=== PATIENT | male | born 1940 | race Caucasian/White ===

== ENCOUNTER 2023-04-29 17:35 | Emergency (ER) | payer MEDICARE, SELFPAY ==
[2023-04-29 17:36] VITALS: BP 126/83; PULSE 117; RESP 18; TEMP 36.4; O2SAT 96
--- NOTE | 2023-04-29 17:40 | ED.EXTPRO ---
HPI - Extremity Problem General Chief complaint: Extremity Problem,Nontraumatic Stated complaint: leg bleeding Time Seen by Provider: 04/29/23 17:39 Source: patient Mode of arrival: ambulatory Limitations: no limitations History of Present Illness HPI Narrative: Patient is an 83 y/o female who presents to the ED with c/o bleeding from wound to his LLE. Patient reports he had a skin biopsy performed on his L inner calf 1 month ago by a surgeon at [facility]. He states it never healed fully. He developed bleeding from the wound again today and was unable to control the bleeding. Patient is on Xarelto due to hx of afib. Patient was recently admitted at an outside hospital for PNA. Discharged to [facility] for rehab last night. He states he has not had his dressing changed in the last 1 week until today. Related Data Allergies Allergy/AdvReac Type Severity Reaction Status Date / Time No Known Allergies Allergy Uncoded 04/14/19 06:31 Review of Systems Review of Systems: CONSTITUTIONAL: Denies fever, chills, or sweats. SKIN: See HPI. MUSCULOSKELETAL: Denies back pain, joint pain, or myalgia. NEUROLOGIC: Denies headache, numbness, or weakness. All systems reviewed & are unremarkable except as noted in HPI and below Exam Narrative: GENERAL: Elderly, non-toxic, in no acute distress. RESPIRATORY: Airway patent, respirations nonlabored. CARDIOVASCULAR: Regular rate and rhythm without murmurs, rubs, or gallops. Pedal pulses 2+ and equal bilaterally. MUSCULOSKELETAL: Moves all extremities. No gross deformities. Venous stasis changes to bilateral lower extremities. Circular wound to left medial calf with small central scab. No active bleeding. Small area of surrounding ecchymosis present. SKIN: Warm, dry, normal color. No rashes. NEURO: A&O X3. Speech clear. Cranial nerves II-XII grossly intact. No ataxic movements. PSYCHIATRIC: Appropriate mood and affect. Normal interaction. Course Vital Signs Vital signs: Vital Signs Temperature 97.6 F 04/29/23 17:36 Pulse Rate 117 H 04/29/23 17:36 Respiratory Rate 18 04/29/23 17:36 Blood Pressure 126/83 04/29/23 17:36 Pulse Oximetry 96 04/29/23 17:36 Oxygen Delivery Room Air 04/29/23 17:36 Temperature 97.6 F 04/29/23 17:36 Pulse Rate 80 04/29/23 18:41 Respiratory Rate 20 04/29/23 18:41 Blood Pressure 126/83 04/29/23 17:36 Pulse Oximetry 93 04/29/23 18:41 Oxygen Delivery Room Air 04/29/23 17:36 MDM - Extremity (Nontraumatic) MDM Narrative Medical decision making narrative: Patient presented to ED with bleeding wound from previous skin biopsy site. Patient had not had his bandage changed in the last 1 week. Bandaged changed today at [place] and began bleeding afterwards. Upon arrival to the ED, no active bleeding noted. Discussed using silver nitrate sticks to cauterize wound, however again no bleeding noted. Will re-bandage wound with nonadhesive dressing, pressure gauze dressing over telfa. Emphasized the importance of daily wound checks and dressing changes. My suspicion is that the [facility] staff changed the bandage today and in doing so inadvertently ripped open a part of the scab that had formed. Will provide referral to wound care at [place]. Otherwise recommended follow-up with surgeon who performed procedure or primary care doctor for frequent wound checks. Given return precautions. Patient and family agree w/ plan. Medical Records Attestation: I reviewed the patient's medical records. Discharge Plan Discharge Clinical Impression: Chronic wound of extremity Patient Disposition: Home, Self-Care Condition: Stable Instructions: Antibiotic Form, Skin Adhesive Care (ED), Chronic Wounds (ED), Acute Wounds (ED) Additional Instructions: Recommend daily bandage changes and wound checks. Recommend using nonadhesive bandages to prevent wound from sticking to bandage. You may use an antibiotic cream, Vaseline, Aquaph
[2023-04-29 18:41] VITALS: PULSE 80; RESP 20; O2SAT 93
== END 2023-04-29 18:50 ==
PROVIDERS: Emergency Provider Physician Assistant; PCP Internal Medicine
DX: Z48.01 Encounter for change or removal of surgical wound dressing (principal); I48.91 Unspecified atrial fibrillation; Z79.01 Long term (current) use of anticoagulants
CPT/HCPCS: 99282

== ENCOUNTER 2023-05-05 16:38 | Inpatient (IN) | payer MEDICARE, SELFPAY ==
--- NOTE | ~2023-05-05 | XR_ITS ---
MODIFIED ESOPHAGRAM HISTORY: Aspiration TECHNIQUE: Modified barium esophagram was performed on 05/09/2023. I administered fluoroscopy and per formed the exam with speech pathologist. Patient was seated for lateral fluoroscopic imaging for ing estion of thin liquids, pudding, solids and quantified amounts, followed by thin liquids in uncontrol led amounts. This was recorded on tape. A single fluoroscopic spot image was also recorded. The DAP f or this procedure was 2.713 Gycm2. The amount of fluoroscopy time used during this procedure was 2.1 minutes. FINDINGS: Oral stage: Adequate function. Pharyngeal stage: Reduced tongue base retraction with likely residual and piriform sinus residue. The re is laryngeal penetration following the swallow with silent aspiration. Severe cervical spondylosis with moderate sized anterior endplate osteophytes. Cervical/esophageal stage: There is esophageal/pharyngeal backflow. IMPRESSION: Following the swallow there is esophageal/pharyngeal backflow with laryngeal penetration and silent aspiration. Please correlate with speech pathologist findings and specific feeding recomm endations. Reviewed, dictated and finalized at location A. K ASH BURNER OPERATOR IMPRESSION: Following the swallow there is esophageal/pharyngeal backflow with laryngeal penetration and silent aspiration. Please correlate with speech path ologist findings and specific feeding recommendations.
--- NOTE | ~2023-05-05 | XR_ITS ---
EXAMINATION: XR_[id number]_CR DATE: 05/09/2023 17:09 INDICATION: Dysphagia with aspiration requiring nasogastric tube placement TECHNIQUE: Fluoroscopy was utilized during advancement of a nasogastric tube in the stomach. A single fluoroscopic image was recorded. The amount of fluoroscopy time used during this procedure was 0.8 m inutes. Total DAP was 7.824 Gycm^2. COMPARISON: None. FINDINGS/IMPRESSION: Successful placement of nasogastric tube with distal tip and proximal side port in the body of the [facility]. Reviewed, dictated and finalized at location A. [employer]OR PIPE MANUFA[employer]URE
--- NOTE | ~2023-05-05 | CT_ITS ---
EXAMINATION: CT soft tissue neck chest wo DATE: 05/08/2023 16:35 INDICATION: Hemoptysis. TECHNIQUE: Computed tomography (CT) of the neck and chest was performed without intravenous contrast. Automated exposure control and iterative reconstruction technique were employed. The dose-length pro duct was 1023.87 mGy-cm. COMPARISON: None FINDINGS: CT NECK: There are likely changes of ocular lens replacement surgeries. There are changes of thyroide ctomy. There are no pathologically enlarged lymph nodes. There is severe cervical spondylosis. CT CHEST: There is elevation of right hemidiaphragm. There are small pleural effusions, right worse t estrella left. There is mild atelectasis bilaterally with a dependent and inferior lung predominance. A ca lcified left lung nodule and calcified left hilar lymph nodes are consistent with old granulomatous d isease. Cardiomegaly is noted. There are coronary artery calcifications. No pericardial effusion. The re is a left chest wall pacer with leads in the right atrium and right ventricle. The central pulmona ry arteries are enlarged, consistent with pulmonary arterial hypertension. There is a lipoma in left supraclavicular region. Partially visualized are masses in left kidney measuring up to 18 mm. There a re bridging endplate osteophytes at multiple levels in the spine, consistent with diffuse idiopathic skeletal hyperostosis (DISH). IMPRESSION: 1. Small pleural effusions, right worse than left. 2. Partially visualized left kidney masses, most likely hemorrhagic cysts, but neoplasm cannot be exc luded. Abdomen CT without and with contrast is recommended. Reviewed, dictated and finalized at location E. HEALTH AIDE CAREGIVER IMPRESSION: 1. Small pleural effusions, right worse than left. 2. Partially visualized left kidney masses, most likely hemorrhagic cysts, but neoplasm cannot be excluded. Abdomen CT without and with contrast is recommende yolette
--- NOTE | ~2023-05-05 | XR_ITS ---
Portable chest x-ray Comparison: None Clinical History: Hematemesis Findings: Minimal right pleural effusion probably present. Left lung clear. Cardiomediastinal silho uette is prominent, with pacemaker device. Bones and soft tissues are unremarkable. Impression: Minimal right pleural effusion/atelectatic change. Mild cardiomegaly with pacemaker device. Reviewed, dictated and finalized at [facility]. N TIER Impression: Minimal right pleural effusion/atelectatic change. Mild cardiomegaly with pacemaker device.
[2023-05-05 16:55] VITALS: BP 107/72; PULSE 81; RESP 20; TEMP 36.1; O2SAT 100
--- NOTE | 2023-05-05 17:00 | ED.GENADULT ---
HPI - General Adult General Chief complaint: Recheck/Abnormal Lab/Rx Stated complaint: abnormal h/h Time Seen by Provider: 05/05/23 21:07 History of Present Illness HPI narrative: Demarco Hernandes is an 83 y/o male from [facility]. Patient is alert and oriented X 4 and states that he has had nausea with vomiting up blood for 2 days/ blood in his stool today / he had labs drawn today and his hgb was found to be 7.6- he is on Eliquis for Afib. Reports having some upper abdominal pain. Related Data Home Medications Medication Instructions Recorded Confirmed apixaban 5 mg tablet (Eliquis) 5 mg PO BID 04/30/23 04/30/23 dexamethasone 4 mg tablet 4 mg PO BID 04/30/23 04/30/23 isosorbide mononitrate 30 mg 30 mg PO DAILY 04/30/23 04/30/23 tablet,extended release 24 hr levothyroxine 75 mcg capsule 75 mcg PO DAILY 04/30/23 04/30/23 rosuvastatin 40 mg tablet (Crestor) 40 mg PO DAILY 04/30/23 04/30/23 Allergies Allergy/AdvReac Type Severity Reaction Status Date / Time No Known Allergies Allergy Uncoded 04/14/19 06:31 [facility] Past Medical History Medical History CHF (congestive heart failure) Chronic kidney disease, stage 4 (severe) Hiatal hernia with gangrene Social History Social History Smoking status: Former smoker Course Vital Signs Vital signs: Vital Signs Temperature 97 F L 05/05/23 16:55 Pulse Rate 81 05/05/23 16:55 Respiratory Rate 20 05/05/23 16:55 Blood Pressure 107/72 05/05/23 16:55 Pulse Oximetry 100 05/05/23 16:55 Oxygen Delivery Room Air 05/05/23 16:55 Temperature 98.0 F 05/05/23 19:29 Pulse Rate 80 05/06/23 00:00 Respiratory Rate 14 05/06/23 00:00 Blood Pressure 115/87 05/06/23 00:00 Pulse Oximetry 100 05/06/23 00:00 Oxygen Delivery Room Air 05/05/23 16:55 Medical Decision Making Vital Signs Vital Signs: Vital Signs Temperature 97 F L 05/05/23 16:55 Pulse Rate 81 05/05/23 16:55 Respiratory Rate 20 05/05/23 16:55 Blood Pressure 107/72 05/05/23 16:55 Pulse Oximetry 100 05/05/23 16:55 Oxygen Delivery Room Air 05/05/23 16:55 Temperature 98.0 F 05/05/23 19:29 Pulse Rate 80 05/06/23 00:00 Respiratory Rate 14 05/06/23 00:00 Blood Pressure 115/87 05/06/23 00:00 Pulse Oximetry 100 05/06/23 00:00 Oxygen Delivery Room Air 05/05/23 16:55 Lab Data 05/06/23 01:36 05/05/23 21:08 Labs: Lab Results 05/05/23 05/06/23 Range/Units 21:08 01:36 WBC 11.5 H (4.5-10.0) K/mm3 RBC 2.53 L (4.6-6.20) M/mm3 Hgb 7.9 L 7.1 L (14.0-18.0) g/dL Hct 25.0 L 22.8 L (42.0-52.0) % MCV 98.8 (80-100) fl MCH 31.2 (26-34) pg MCHC 31.6 L (32-36) g/dl RDW 18.6 H (11.5-14.5) % Plt Count 127 L (150-375) k/mm3 MPV 12.1 H (7.4-10.4) fl Immature Gran % (Auto) Not Reportable Neut % (Auto) Not Reportable Lymph % (Auto) Not Reportable [place] % (Auto) Not Reportable Eos % (Auto) Not Reportable Baso % (Auto) Not Reportable Lymph # (Auto) Not Reportable [place] # (Auto) Not Reportable Eos # (Auto) Not Reportable Baso # (Auto) Not Reportable Abs Immat Gran (auto) Not Reportable Absolute Neuts (auto) Not Reportable Absolute Nucleated RBC Not Reportable Total Counted 100 Neutrophils % (Manual) 90 H (46-73) % Band Neutrophils % 1 (0-6) % Lymphocytes % (Manual) 2.0 L (18-44) % Monocytes % (Manual) 7 (3-9) % Nucleated RBC % Not Reportable Abs Neuts (Manual) 10.46 H (1.3-6.7) K/mm3 Abs Lymphs (Manual) 0.23 L (1.1-4.5) K/mm3 Abs Monocytes (Manual) 0.80 (0.1-0.90) K/mm3 Nucleated RBCs 2 % Platelet Estimate Decreased (Adequate) Hypochromasia 1+ (NORMAL) Anisocytosis 3+ (NORMAL) Schistocytes None seen (NORMAL) PT 21.1 H (11.1-14.7) Seconds INR 1.7 APTT 35.
[2023-05-05 19:29] VITALS: BP 121/69; PULSE 86; RESP 19; TEMP 36.7; O2SAT 100
--- NOTE | 2023-05-05 19:29 | PC.NURSE ---
dressing to arm changed in triage.
[2023-05-05 21:00] VITALS: BP 133/76; PULSE 79; RESP 14; RESP 19; O2SAT 100
[2023-05-05 21:18] LABS: Hemoglobin 7.9 g/dL (14.0-18.0); Mean Corpuscular HGB Conc 31.6 g/dl (32-36); Mean Corpuscular Hemoglobin 31.2 pg (26-34); Mean Corpuscular Volume 98.8 fl (80-100); Mean Platelet Volume 12.1 fl (7.4-10.4); Platelet Count Result 127 k/mm3 (150-375); Red Blood Count 2.53 M/mm3 (4.6-6.20); Red Cell Distribution Width 18.6 % (11.5-14.5); White Blood Count 11.5 K/mm3 (4.5-10.0)
[2023-05-05 21:29] LABS: INR 1.7; Prothrombin Time 21.1 Seconds (11.1-14.7)
[2023-05-05 21:30] LABS: Partial Thromboplastin Time 35.2 SECONDS (22.3-36.8)
[2023-05-05 21:37] LABS: Band Neutrophils Percent 1 % (0-6); Lymphocytes Absolute Manual 0.23 K/mm3 (1.1-4.5); Monocytes Percent Manual 7 % (3-9); Neutrophils Absolute Manual 10.46 K/mm3 (1.3-6.7); Neutrophils Percent Manual 90 % (46-73); Nucleated Red Blood Cells 2 %; Platelet Estimate Decreased (Adequate); Schistocytes None Seen (NORMAL); Total Cells Counted 100
[2023-05-05 21:38] LABS: Anisocytosis 3+ (NORMAL); Hypochromasia 1+ (NORMAL)
[2023-05-05 22:52] LABS: Alanine Aminotransferase 30 U/L (6-50); Albumin Level 3.5 g/dL (3.5-5.1); Alkaline Phosphatase 173 U/L (38-126); Anion Gap 13 mmol/L (8-16); Aspartate Amino Transferase 54 U/L (17-59); Bilirubin,Total 0.9 mg/dL (0.2-1.3); Blood Urea Nitrogen 108 mg/dL (9-20); Calcium 7.6 mg/dL (8.4-10.2); Carbon Dioxide 19 mmol/L (22-30); Chloride 100 mmol/L (98-107); Estimated CRCL calculation 15 ml/min; Estimated Glomerular Filt Rate 16; Glucose 85 mg/dL (65-110); Magnesium 2.2 mg/dL (1.6-2.3); Potassium 3.9 mmol/L (3.4-5.0); Sodium 132 mmol/L (137-145)
[2023-05-05 23:00] VITALS: BP 116/72; PULSE 76; RESP 14; O2SAT 97
[2023-05-06] VITALS (19 sets, daily range): BP systolic 60–133; BP diastolic 24–87; PULSE 62–87; RESP 14–20; TEMP 36.1–36.4; O2SAT 90–100
[2023-05-06] MEDS: ONDANSETRON INJ 4 MG/2 ML VIAL IV PUSH (01:27)
[2023-05-06] MEDS: PANTOPRAZOLE SODIUM IV 40 MG VIAL 80 MG IV PUSH (01:30)
[2023-05-06 01:42] LABS: Hematocrit 22.8 % (42.0-52.0); Hemoglobin 7.1 g/dL (14.0-18.0)
--- NOTE | 2023-05-06 01:58 | ED.GENADULT ---
HPI - General Adult General Chief complaint: Recheck/Abnormal Lab/Rx Stated complaint: abnormal h/h Time Seen by Provider: 05/05/23 21:07 History of Present Illness HPI narrative: this is an 83-year-old male sent in from the halfway for abnormal labs. Patient had a hemoglobin of 7.2 and was sent to the hospital. Patient states that he has been having vomiting for the last 2 days that is streaked with blood. He has also been having dark stools. He takes Eliquis for AFib. he is currently complaining of epigastric discomfort and nausea. No chest pain difficulty breathing or urinary symptoms. Related Data Home Medications Medication Instructions Recorded Confirmed apixaban 5 mg tablet (Eliquis) 5 mg PO BID 04/30/23 04/30/23 dexamethasone 4 mg tablet 4 mg PO BID 04/30/23 04/30/23 isosorbide mononitrate 30 mg 30 mg PO DAILY 04/30/23 04/30/23 tablet,extended release 24 hr levothyroxine 75 mcg capsule 75 mcg PO DAILY 04/30/23 04/30/23 rosuvastatin 40 mg tablet (Crestor) 40 mg PO DAILY 04/30/23 04/30/23 Allergies Allergy/AdvReac Type Severity Reaction Status Date / Time No Known Allergies Allergy Uncoded 04/14/19 06:31 [facility] Past Medical History Medical History CHF (congestive heart failure) Chronic kidney disease, stage 4 (severe) Hiatal hernia with gangrene Social History Social History Smoking status: Former smoker Exam Narrative: APPEARANCE: No apparent distress. Head: atraumatic. EYES: EOMI, NOSE: Atraumatic NECK: Trachea midline RESPIRATORY: No increased rate of breathing , clear to auscultation CARDIOVASCULAR: RRR, weeping edema of the lower extremities with several skin tears of varying ages. ABDOMINAL: Mild tenderness in the epigastric area without guarding or rebound. digital rectal exam showed dark stools that are Hemoccult positive. MUSCULOSKELETAl: No obvious deformities NEURO: Alert. Moving 4/4 extremities SKIN:: Warm, dry. Normal color PSYCHIATRIC: Normal affect Course Vital Signs Vital signs: Vital Signs Temperature 97 F L 05/05/23 16:55 Pulse Rate 81 11/06/23 16:55 Respiratory Rate 20 05/05/23 16:55 Blood Pressure 107/72 05/05/23 16:55 Pulse Oximetry 100 05/05/23 16:55 Oxygen Delivery Room Air 05/05/23 16:55 Temperature 98.0 F 05/05/23 19:29 Pulse Rate 80 05/06/23 00:00 Respiratory Rate 14 05/06/23 00:00 Blood Pressure 115/87 05/06/23 00:00 Pulse Oximetry 100 05/06/23 00:00 Oxygen Delivery Room Air 05/05/23 16:55 Medical Decision Making MDM Narrative Medical decision making narrative: -Course: 83-year-old male presenting with hematemesis, epigastric discomfort and melanotic stools. Initial hemoglobin was 7.9 which trended to 7.1. Patient will be transfused 1 unit of packed red blood cells. Patient will be admitted the hospital for further management of his suspected upper GI bleed. -DDX includes but is not limited to: Upper GI bleed, lower GI bleed, peptic ulcer disease, gastritis, colon cancer -Co-morbidities complicating care: AFib on Eliquis, hypothyroid, congestive heart failure -Social determinants of health: halfway resident -Hx from independent Sources: family at bedside -Independent interpretation of studies: hemoglobin 7.9 -> 7.1. No recent baseline in our system. Metabolic panel showed a BUN of 108 and a creatinine of 3.7. Patient has documented history of CKD 4. elevations BUN could be dehydration versus upper GI bleed. INR 1.7. Independent EKG interpretation: Rhythm paced, Rate 82, [place] -[left], MA -[normal], QRS wide, QTC [normal], T waves -[negative for concerning inversions], ST Segments - [Negative for concerning elevations] Final interpretations: paced rhythm -Discussion of Management/Consultants: Sixto-hospitalist -Interventions: 80 mg Protonix, 4 mg Zofran, Protonix drip -S
--- NOTE | 2023-05-06 02:04 | ECG_ITS ---
Measurements Intervals [place] Rate: 82 P: CO: 0 QRS: -84 QRSD: 202 T: 81 QT: 450 QTc: 526 Interpretive Statements ELECTRONIC VENTRICULAR PACEMAKER FREQUENT VENTRICULAR PREMATURE COMPLEXES BASELINE ARTIFACT- I, III, AVL, V2 NO FURTHER INTERPRETATION IS POSSIBLE ABNORMAL ECG NO PREVIOUS ECG AVAILABLE FOR COMPARISON Electronically Signed On 05-06-2023 6:38:47 CLINIC LPN by Murphy Bhardwaj D.O.
[2023-05-06] MEDS: PANTOPRAZOLE SODIUM IV 80 MG in SODIUM CHLORIDE 0.9% IV 500 ML 50 MG IV CONT (02:24)
--- NOTE | 2023-05-06 03:22 | ADMGEN ---
This patient, Demarco Hernandes, was admitted to 3 Med Surg Room 310-01. Patient/family oriented to hospital policies and general routines including ID bracelet, bed and alarms, visiting hours, pain management, procedures, bathroom and other care routines, personal items, smoking policy, room service/diet, and visiting hours. Information on how to activate the Rapid Response Team has been discussed. Patient/Family are encouraged to report perceived risks to care and to ask questions if they do not understand what they are told or what they should do.
[2023-05-06] MEDS: SODIUM CHLORIDE 0.9% IV 250 ML 30 ML IV CONT (03:50)
--- NOTE | 2023-05-06 12:04 | WPDGICN ---
Assessment and Plan Assessment and plan (1) Anemia: Code(s): D64.9 - Anemia, unspecified Status: Acute Assessment and Plan: Patient with normochromic normocytic anemia. In the setting of chronic kidney disease. There is a question of hematemesis versus hemoptysis. Plan for EGD to assess for upper GI blood loss. Consider chest x-ray are evaluation for blood in patient's phlegm. Iron studies will be obtained. Stool Hemoccult will be obtained. (2) CKD (chronic kidney disease): Code(s): N18.9 - Chronic kidney disease, unspecified Status: Acute Assessment and Plan: Patient has chronic kidney disease. This may contribute to anemia. Iron studies will be obtained. (3) UGIB (upper gastrointestinal bleed): Code(s): K92.2 - Gastrointestinal hemorrhage, unspecified Status: Acute Assessment and Plan: Because of concern over hematemesis an EGD will be arranged today. Patient does give a history of blood in his phlegm after coughing. We may need to consider this as well. GI Consult Note Consult date/time: 05/06/23 12:04 Reason for consult: Hematemesis HPI: Demarco Hernandes is a 83 year old male I am asked to see at the request of the emergency room because of hematemesis. Patient reports that he has been coughing up material that has blood streaks in it. This not been witnessed by surgical service. There are tinges of dark material within patient has phlegm that he coughs up. In the ER patient gave a history of vomiting with blood-tinged material noted. He presented with anemia and for this reason GI consult has been placed. Patient does report a history of dark stools in the past. Family history noncontributory. Patient is on Eliquis because of atrial fibrillation. Review of Systems Review of Systems: Review of systems noncontributory. [facility] Past Medical History Medical History CHF (congestive heart failure) Chronic kidney disease, stage 4 (severe) Hiatal hernia with gangrene Social History Social History Smoking status: Former smoker Tobacco type: cigarettes Smoking end date: 06/30/79 Alcohol intake: never Substance use: never Substance use type: does not use Lack of Transportation: No Lack of Food: Never True Current Housing: I Have Housing Concerned About Future Housing: No Difficulty Paying Gas/Electric Bills: No Difficulty Paying for Meds: No Currently Unemployed: No Education: High School Diploma/GED Difficulty w/ Childcare or Family Care: No Spiritual care concerns: No Meds Home Medications and Allergies Home Medications Medication Instructions Recorded Confirmed Type isosorbide mononitrate 30 mg 30 mg PO DAILY 04/30/23 05/06/23 History tablet,extended release 24 hr rosuvastatin 40 mg tablet (Crestor) 40 mg PO HS 04/30/23 05/06/23 History allopurinol 300 mg tablet 300 mg PO DAILY 05/06/23 05/06/23 History apixaban 2.5 mg tablet (Eliquis) 2.5 mg PO BID 05/06/23 05/06/23 History benzocaine 15 mg-menthol 3.6 mg 1 rizwana mucous membrane Q2-4H PRN 05/06/23 05/06/23 History lozenges (Cepacol Sore Throat Sore Throat (benzocaine-menthol)) bumetanide 0.5 mg tablet 0.5 mg PO EVERY OTHER DAY 05/06/23 05/06/23 History ferrous sulfate 325 mg (65 mg 325 mg PO DAILY 05/06/23 05/06/23 History iron) tablet,delayed release finasteride 5 mg tablet 5 mg PO DAILY 05/06/23 05/06/23 History hydrocodone 5 mg-acetaminophen 325 1 tablet PO Q6H PRN Pain (Scale 05/06/23 05/06/23 History mg tablet Score 4-6) ipratropium 0.5 mg-albuterol 3 mg 3 ml inhalation TID PRN Shortness 05/06/23 05/06/23 History (2.5 mg base)/3 mL nebulization Of Breath Or Wheezing soln ketoconazole 2 % topical cream 1 applic topical DAILY 05/06/23 05/06/23 History levofloxacin 500 mg tablet 500 mg PO DAILY 05/06/23 05/06/23 Hist
--- NOTE | 2023-05-06 12:18 | PM.IMHP ---
H&P: HPI History of Present Illness Date/Time: 05/06/23 12:18 Chief Complaint: low hemoglobin Narrative: 83-year-old male with history of kidney disease, AFib on anticoagulation, and heart failure is presenting from a nursing facility with a hemoglobin of 7.2 as well as hematemesis x2 days. Denies chest pain or shortness of breath, no diarrhea. He is having some epigastric discomfort. He denies dysuria, fevers or chills. In the ER he was transfused 1 unit packed red blood cells and GI was consulted. They then took the patient to EGD. EGD showed esophageal ulcers without bleeding and recommended a follow-up EGD later this week to obtain biopsies as well as another 1 at 2 months to document resolution. 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 Social History Social History Smoking status: Former smoker Tobacco type: cigarettes Smoking end date: 06/30/79 Alcohol intake: never Substance use: never Substance use type: does not use Lack of Transportation: No Lack of Food: Never True Current Housing: I Have Housing Concerned About Future Housing: No Difficulty Paying Gas/Electric Bills: No Difficulty Paying for Meds: No Currently Unemployed: No Education: High School Diploma/GED Difficulty w/ Childcare or Family Care: No Spiritual care concerns: No Meds Home Medications and Allergies Home Medications Medication Instructions Recorded Confirmed Type isosorbide mononitrate 30 mg 30 mg PO DAILY 04/30/23 05/06/23 History tablet,extended release 24 hr rosuvastatin 40 mg tablet (Crestor) 40 mg PO HS 04/30/23 05/06/23 History allopurinol 300 mg tablet 300 mg PO DAILY 05/06/23 05/06/23 History apixaban 2.5 mg tablet (Eliquis) 2.5 mg PO BID 05/06/23 05/06/23 History benzocaine 15 mg-menthol 3.6 mg 1 rizwana mucous membrane Q2-4H PRN 05/06/23 05/06/23 History lozenges (Cepacol Sore Throat Sore Throat (benzocaine-menthol)) bumetanide 0.5 mg tablet 0.5 mg PO EVERY OTHER DAY 05/06/23 05/06/23 History ferrous sulfate 325 mg (65 mg 325 mg PO DAILY 05/06/23 05/06/23 History iron) tablet,delayed release finasteride 5 mg tablet 5 mg PO DAILY 05/06/23 05/06/23 History hydrocodone 5 mg-acetaminophen 325 1 tablet PO Q6H PRN Pain (Scale 05/06/23 05/06/23 History mg tablet Score 4-6) ipratropium 0.5 mg-albuterol 3 mg 3 ml inhalation TID PRN Shortness 05/06/23 05/06/23 History (2.5 mg base)/3 mL nebulization Of Breath Or Wheezing soln ketoconazole 2 % topical cream 1 applic topical DAILY 05/06/23 05/06/23 History levofloxacin 500 mg tablet 500 mg PO DAILY 05/06/23 05/06/23 History levothyroxine 125 mcg tablet 125 mcg PO DAILY 05/06/23 05/06/23 History nystatin 100,000 unit/mL oral 100,000 unit PO QID 05/06/23 05/06/23 History suspension patiromer calcium sorbitex 8.4 8.4 g PO DAILY 05/06/23 05/06/23 History gram oral powder packet (Veltassa) sennosides 8.6 mg-docusate sodium 1 cap PO BID 05/06/23 05/06/23 History 50 mg capsule (Senna Plus) sertraline 25 mg tablet 25 mg PO BID 05/06/23 05/06/23 History sertraline 25 mg tablet 25 mg PO DAILY 05/06/23 05/06/23 History sodium bicarbonate 650 mg tablet 650 mg PO TID 05/06/23 05/06/23 History tizanidine 2 mg tablet 2 mg PO HS 05/06/23 05/06/23 History Allergies Allergy/AdvReac Type Severity Reaction Status Date / Time No Known Allergies Allergy Uncoded 04/14/19 06:31 Vital Signs Vital Signs - 24 hr 05/05/23 16:55 05/05/23 19:29 05/05/23 21:00 Temperature 97 F L 98.0 F Pulse Rate 81 86 Respiratory Rate 20 19 19 Blood Pressure 107/72 121/69 Pulse Oximetry 100 100 100 Oxygen Delivery Room Air 05/05/23 21:00 05/05/23 23:00 05/06/23 00:00 Temperature
[2023-05-06 12:55] LABS: Iron 35 ug/dL (49-181)
[2023-05-06 13:05] LABS: Percent Iron Saturation 15 % (20-50)
[2023-05-06] MEDS: LACTATED RINGERS 1,000 ML 150 ML IV CONT (14:05)
--- NOTE | 2023-05-06 14:09 | WPDANESEPPF ---
Anes - Initial Pre Proc Eval Procedure: Operation Date: 05/06/23 14:00 Proposed Procedures p Esophagogastroduodenoscopy - Ruy Allred MD Date/Time: 05/06/23 14:09 Surgeon: Ruy Henson MD Pre Op Diagnosis: Upper GI Bleed Patient Data Age: 83 Gender: M Height: 1.68 m Weight: 86.1 kg Last Vital Signs Temp 97.2 F L 05/06/23 14:02 Pulse 87 05/06/23 14:02 Resp 20 05/06/23 14:02 BP 131/71 05/06/23 14:02 Pulse Ox 99 05/06/23 14:02 O2 Del Method Room Air 05/06/23 14:02 Allergies Allergy/AdvReac Type Severity Reaction Status Date / Time No Known Allergies Allergy Uncoded 04/14/19 06:31 Home Medications Medication Instructions Recorded Confirmed Type isosorbide mononitrate 30 mg 30 mg PO DAILY 04/30/23 05/06/23 History tablet,extended release 24 hr rosuvastatin 40 mg tablet (Crestor) 40 mg PO HS 04/30/23 05/06/23 History allopurinol 300 mg tablet 300 mg PO DAILY 05/06/23 05/06/23 History apixaban 2.5 mg tablet (Eliquis) 2.5 mg PO BID 05/06/23 05/06/23 History benzocaine 15 mg-menthol 3.6 mg 1 rizwana mucous membrane Q2-4H PRN 05/06/23 05/06/23 History lozenges (Cepacol Sore Throat Sore Throat (benzocaine-menthol)) bumetanide 0.5 mg tablet 0.5 mg PO EVERY OTHER DAY 05/06/23 05/06/23 History ferrous sulfate 325 mg (65 mg 325 mg PO DAILY 05/06/23 05/06/23 History iron) tablet,delayed release finasteride 5 mg tablet 5 mg PO DAILY 05/06/23 05/06/23 History hydrocodone 5 mg-acetaminophen 325 1 tablet PO Q6H PRN Pain (Scale 05/06/23 05/06/23 History mg tablet Score 4-6) ipratropium 0.5 mg-albuterol 3 mg 3 ml inhalation TID PRN Shortness 05/06/23 05/06/23 History (2.5 mg base)/3 mL nebulization Of Breath Or Wheezing soln ketoconazole 2 % topical cream 1 applic topical DAILY 05/06/23 05/06/23 History levofloxacin 500 mg tablet 500 mg PO DAILY 05/06/23 05/06/23 History levothyroxine 125 mcg tablet 125 mcg PO DAILY 05/06/23 05/06/23 History nystatin 100,000 unit/mL oral 100,000 unit PO QID 05/06/23 05/06/23 History suspension patiromer calcium sorbitex 8.4 8.4 g PO DAILY 05/06/23 05/06/23 History gram oral powder packet (Veltassa) sennosides 8.6 mg-docusate sodium 1 cap PO BID 05/06/23 05/06/23 History 50 mg capsule (Senna Plus) sertraline 25 mg tablet 25 mg PO BID 05/06/23 05/06/23 History sertraline 25 mg tablet 25 mg PO DAILY 05/06/23 05/06/23 History sodium bicarbonate 650 mg tablet 650 mg PO TID 05/06/23 05/06/23 History tizanidine 2 mg tablet 2 mg PO HS 05/06/23 05/06/23 History Laboratory Tests 05/05/23 05/06/23 05/06/23 21:08 01:36 12:21 WBC 11.5 H K/mm3 (4.5-10.0) RBC 2.53 L M/mm3 (4.6-6.20) Hgb 7.9 L g/dL 7.1 L g/dL (14.0-18.0) (14.0-18.0) Hct 25.0 L % 22.8 L % (42.0-52.0) (42.0-52.0) MCV 98.8 fl (80-100) MCH 31.2 pg (26-34) MCHC 31.6 L g/dl (32-36) RDW 18.6 H % (11.5-14.5) Plt Count 127 L k/mm3 (150-375) MPV 12.1 H fl (7.4-10.4) Immature Gran % (Auto) Not Reportable Neut % (Auto) Not Reportable Lymph % (Auto) Not Reportable [place] % (Auto) Not Reportable Eos % (Auto) Not Reportable Baso % (Auto) Not Reportable Lymph # (Auto) Not Reportable [place] # (Auto) Not Reportable Eos # (Auto) Not Reportable Baso # (Auto) Not Reportable Abs Immat Gran (auto) Not Reportable Absolute Neuts (auto) Not Reportable Absolute Nucleated RBC Not Reportable Total Counted 100 Neutrophils % (Manual) 90 H % (46-73) Band Neutrophils % 1 % (0-6) Lymphocytes % (Manual) 2.0 L % (18-44) Monocytes % (Manual) 7 % (3-9) Nucleated RBC % Not Reportable Abs Neuts (Manual) 10.46 H K/mm3 (1.3-6.7) Abs Lymphs (Manual) 0.23 L K/m
[2023-05-06] MEDS: SODIUM BICARBONATE TAB 650 MG TABLET PO (18:07)
[2023-05-06] MEDS: SERTRALINE HCL 25 MG TABLET PO (18:07)
[2023-05-06] MEDS: SENNA/DOCUSATE SODIUM TABLET 1 TAB PO (18:07)
[2023-05-06] MEDS: allopurinoL 300 MG TABLET PO (18:07)
[2023-05-06] MEDS: TIZANIDINE HCL 2 MG TABLET PO (20:19)
[2023-05-06] MEDS: PANTOPRAZOLE SODIUM IV 40 MG VIAL IV PUSH (20:19)
[2023-05-06] MEDS: NYSTATIN 100,000 UNITS/ML SUSP 5 ML ORAL.SUSP PO (20:19)
[2023-05-06] MEDS: ROSUVASTATIN 10 MG TABLET 40 MG PO (20:19)
[2023-05-07] VITALS (11 sets, daily range): BP systolic 117–135; BP diastolic 69–79; PULSE 80–88; RESP 14–19; TEMP 36.3–36.9; O2SAT 96–100
[2023-05-07 05:55] LABS: Eosinophils Percent Auto 0.1 % (0-4.4); Hematocrit 23.1 % (42.0-52.0); Hemoglobin 7.3 g/dL (14.0-18.0); Immature Granulocyte Absolute 0.03 K/mm3 (0.00-0.031); Immature Granulocyte Percent A 0.4 % (0-0.5); Immature Platelet Fraction Pct 4.5 % (0.9-11.2); Lymphocytes Absolute Auto 0.15 K/mm3 (0.9-3.2); Lymphocytes Percent Auto 2.2 % (18.3-44.2); Mean Corpuscular HGB Conc 31.6 g/dl (32-36); Mean Corpuscular Hemoglobin 30.5 pg (26-34); Mean Corpuscular Volume 96.7 fl (80-100); Mean Platelet Volume 12.7 fl (7.4-10.4); Monocytes Absolute Auto 0.4 K/mm3 (0.1-0.6); Monocytes Percent Auto 6.4 % (2.6-8.5); Neutrophils Absolute Auto 6.2 K/mm3 (1.3-6.7); Neutrophils Percent Auto 90.9 % (45.5-73.1); Nucleated Red Blood Cells Perc 0.3 % (0.0-0.2); Platelet Count Result 77 k/mm3 (150-375); Red Blood Count 2.39 M/mm3 (4.6-6.20); Red Cell Distribution Width 19.5 % (11.5-14.5); White Blood Count 6.9 K/mm3 (4.5-10.0)
[2023-05-07 06:15] LABS: Alanine Aminotransferase 23 U/L (6-50); Albumin Level 2.6 g/dL (3.5-5.1); Alkaline Phosphatase 136 U/L (38-126); Anion Gap 6 mmol/L (8-16); Aspartate Amino Transferase 44 U/L (17-59); Bilirubin,Total 0.9 mg/dL (0.2-1.3); Blood Urea Nitrogen 95 mg/dL (9-20); Calcium 7.4 mg/dL (8.4-10.2); Carbon Dioxide 24 mmol/L (22-30); Chloride 104 mmol/L (98-107); Estimated CRCL calculation 16 ml/min; Estimated Glomerular Filt Rate 17; Glucose 96 mg/dL (65-110); Potassium 3.5 mmol/L (3.4-5.0); Sodium 134 mmol/L (137-145)
[2023-05-07] MEDS: LEVOTHYROXINE SODIUM 125 MCG TABLET PO (06:19)
[2023-05-07 08:18] LABS: Anisocytosis 1+ (NORMAL); Ovalocytes 1+ (NORMAL); Poikilocytosis 1+ (NORMAL)
[2023-05-07 08:19] LABS: Burr Cells 2+ (NORMAL); Platelet Estimate Decreased (Adequate); Schistocytes 1+ (NORMAL)
[2023-05-07] MEDS: PANTOPRAZOLE SODIUM IV 40 MG VIAL IV PUSH ×2 (08:21→22:07)
[2023-05-07] MEDS: ISOSORBIDE MONONITRATE 30 MG TAB.ER.24H PO (08:22)
[2023-05-07] MEDS: FERROUS SULFATE 325 MG TABLET DR PO (08:22)
[2023-05-07] MEDS: allopurinoL 300 MG TABLET PO (08:22)
[2023-05-07] MEDS: NYSTATIN 100,000 UNITS/ML SUSP 5 ML ORAL.SUSP PO ×3 (08:22→22:07)
--- NOTE | 2023-05-07 08:23 | WPDGIPROGNO ---
Progress Note: A&P Assessment and Plan (1) Esophageal ulcer: Code(s): K22.10 - Ulcer of esophagus without bleeding Status: Acute Assessment and Plan: Patient was several esophageal ulcers that were bleeding at the time of endoscopy yesterday. No biopsies were taken because of anticoagulated status. Plan to continue pantoprazole. Patient can advance diet as tolerated but this may be limited by these ulcers. [place] diet is preferable. Follow-up EGD for biopsy will be planned on . We should continue to avoid is Eliquis at this point. (2) UGIB (upper gastrointestinal bleed): Code(s): K92.2 - Gastrointestinal hemorrhage, unspecified Status: Acute (3) Anemia: Code(s): D64.9 - Anemia, unspecified Status: Acute (4) CKD (chronic kidney disease): Code(s): N18.9 - Chronic kidney disease, unspecified Status: Acute (5) Chronic kidney disease, stage 4 (severe): Code(s): N18.4 - Chronic kidney disease, stage 4 (severe) Status: Acute (6) Chronic anticoagulation: Code(s): Z79.01 - assisted (current) use of anticoagulants Status: Acute Assessment and Plan: Patient on anticoagulation because of atrial fibrillation. This was started 1 month ago. This will need to be held until it is deemed safe and that no additional bleeding. Subjective Date/time seen: 05/07/23 08:23 Interval history: Patient alert today. He remains very weak. He has been a [facility] patient. No significant additional bleeding noted. He has states his appetite is poor. Review of Systems Review of Systems: Review of systems noncontributory. Exam Narrative: Physical exam reveals patient to be bed ridden. HEENT exam reveals no icterus. Lungs are clear. Heart without murmur. Abdomen soft no localized tenderness. Objective Data Vital Signs Vital Signs: Vital Signs - 24 hr 05/06/23 14:02 05/06/23 15:08 05/06/23 15:14 Temperature 97.2 F L Pulse Rate 87 83 66 Respiratory Rate 20 20 20 Blood Pressure 131/71 60/24 L 100/49 L Pulse Oximetry 99 94 92 Oxygen Delivery Room Air Nasal Cannula Nasal Cannula Oxygen Flow Rate 2 1 05/06/23 15:18 05/06/23 15:28 05/06/23 15:46 Temperature 97.3 F L Pulse Rate 77 85 85 Respiratory Rate 18 19 19 Blood Pressure 100/50 L 100/64 133/72 Pulse Oximetry 98 94 97 Oxygen Delivery Nasal Cannula Room Air Oxygen Flow Rate 1 05/06/23 12:00 05/06/23 16:00 05/06/23 20:00 Temperature Pulse Rate 85 83 82 Respiratory Rate Blood Pressure Pulse Oximetry Oxygen Delivery Oxygen Flow Rate 05/06/23 20:00 05/06/23 22:00 05/07/23 00:00 Temperature 97.2 F L Pulse Rate 83 62 81 Respiratory Rate 19 16 Blood Pressure 103/68 Pulse Oximetry 97 90 Oxygen Delivery Room Air Oxygen Flow Rate 05/07/23 04:00 05/07/23 06:00 Temperature 98.4 F Pulse Rate 82 80 Respiratory Rate 18 Blood Pressure 117/69 Pulse Oximetry 96 Oxygen Delivery Oxygen Flow Rate Intake/Output Intake/Output: Intake & Output 05/04/23 05/05/23 05/06/23 05/07/23 23:59 23:59 23:59 23:59 Intake Total 1130 100 Output Total 800 325 Balance 330 -225 Meds/Results Medications: Active Medications Generic Name Dose Route Start Last Admin Trade Name Freq PRN Reason Stop Dose Admin Hydrocodone Bitart/Acetaminophen 1 tab 05/06/23 16:13 Hydrocodone/Acetaminophen (*Crx) 5-325 Mg Tablet PO Q6H PRN Pain (Scale Score 4-6) Albuterol 2.5 mg 05/06/23 17:03 Albuterol Sulfate Neb 2.5 Mg/3 Ml Inh INHALATION Q8HRT PRN Shortness Of Breath Or Wheezing Allopurinol 300 mg 05/06/23 17:00 05/06/23 18:07 Allopurinol 300 Mg Tablet PO 300 mg DAILY GRAY Administration Benzocaine 1 lozenge 05/06/23 17:00 Benzocaine/Menthol (*Bkc) 18 Ea Lozenge PO Q2-4H PRN Sore Throat Ferrous Sulfate 325 mg 05/07/23 09:00 Ferrous Sulfate 325 Mg Ta
[2023-05-07] MEDS: SENNA/DOCUSATE SODIUM TABLET 1 TAB PO (08:24)
[2023-05-07] MEDS: MICONAZOLE NITRATE 2% CREAM 30 GM TUBE 1 APPLIC TOPICAL (08:24)
[2023-05-07] MEDS: FINASTERIDE 5 MG TABLET PO (08:24)
[2023-05-07] MEDS: SERTRALINE HCL 25 MG TABLET PO (08:24)
[2023-05-07] MEDS: SODIUM BICARBONATE TAB 650 MG TABLET PO ×2 (08:40→13:03)
[2023-05-07] MEDS: HYDROcodone/acetaminophen (*CRX) 5-325 MG TABLET 1 TAB PO (08:41)
--- NOTE | 2023-05-07 11:37 | PM.IMPN ---
Progress Note: A&P Assessment and Plan (1) UGIB (upper gastrointestinal bleed): Code(s): K92.2 - Gastrointestinal hemorrhage, unspecified Status: Acute Assessment and Plan: Patient presents with hematemesis and anemia. Protonix started. Hgb low in the 7 range and stable. GI consulted. Eliquis held EGD 05/06 showed several ulcerations within the esophagus with stigmata of bleeding and an adherent clot noted on 1 ulcer. Recommending follow-up EGD later this week and then again in 2 months Monitor hemoglobin closely. Transfuse as needed Appreciate GI consult (2) CKD (chronic kidney disease): Code(s): N18.9 - Chronic kidney disease, unspecified Status: Acute Assessment and Plan: Patient with CKD but baseline unclear. Cr 2-2.7 in 2019 but no values since. Cr 3.7 on admission abd better today. Probably has some underlying KAYLA likely 2/2 acute blood loss anemia/GIB. Continue to monitor closely Consider nephrology consult if does not improve as expected (3) CHF (congestive heart failure): Code(s): I50.9 - Heart failure, unspecified Status: Acute Assessment and Plan: CXR showing minimal right pleural effusions/atelectatic changes. Clinically euvolemic. Monitor closely (4) MDD (major depressive disorder), single episode, moderate: Code(s): F32.1 - Major depressive disorder, single episode, moderate Status: Acute Assessment and Plan: Mood stable. Continue Zoloft. (5) Anemia: Code(s): D64.9 - Anemia, unspecified Status: Acute Assessment and Plan: Patient with acute blood loss anemia. Suspect he has an underlying anemia by prior values in 2019 probably related to his CKD. Iron studies noted. B12, folate levels normal. Monitor HH and transfuse as needed Continue iron (6) Esophageal ulcer: Code(s): K22.10 - Ulcer of esophagus without bleeding Status: Acute Assessment and Plan: As above (7) Atrial fibrillation: Code(s): I48.91 - Unspecified atrial fibrillation Status: Acute Assessment and Plan: Patient has known AFib on anticoagulation. EKG showing paced rhythm. Tele also showing mostly paced rhythm. Eliquis stopped. Okay to stop tele. Follow (8) Thrombocytopenia due to blood loss: Code(s): D69.59 - Other secondary thrombocytopenia Status: Acute Assessment and Plan: Plt count usually normal. Plt count dropped to 77 today. Could be related to acute blood loss from consumption. Will follow. Plan DVT prophylaxis with SCDs GI prophylaxis with PPI Code status unknown Subjective Date/time seen: 05/07/23 11:37 Interval history: 83-year-old male with history of kidney disease, AFib on anticoagulation, and heart failure is presenting from a nursing facility with a hemoglobin of 7.2 as well as hematemesis x2 days.? Assuming care. Chart reviewed. He feels weak. He also feels SOB associated with tightness in the chest. He has a chronic productive cough since being treated for PNA at a prior hospitalization a few weeks ago. is concerned about his overall prognosis and they will discuss code status. Has hx of dysphagia that has not been evaluated. Exam Narrative: AF 98.4 117/69 80 18 96% ra Gen - chronically ill appearing male in NARD lying semi-recumbent in bed Chest - coarse bibasilar crackles. PM noted. CV - RRR S1/S2. Tele showing PVCs and mostly paced rhythm. 12b run NSVT Abd - Soft, NT/ND, Positive BS Ext - Left upper arm dressing stained with blood. Bilateral LE BLAYNE wrapped. Psych - Nml mood with depressed affect Skin - Warm and dry Objective Data Vital Signs Vital Signs: Vital Signs - 24 hr 05/06/23 14:02 05/06/23 15:08 05/06/23 15:14 Temperature 97.2 F L Pulse Rate 87 83 66 Respiratory Rate 20 20 20 Blood Pressure 131/71 60/24 L 100/49 L Pulse Oximetry 99 94 92 Oxygen Delivery Room Air Nasal Cannula Nasal
--- NOTE | 2023-05-07 13:06 | PCDIET ---
Nutrition note: Pt has Deep tissue pressure injury to sacrum. Currently NPO for follow up EGD for bleeding ulcers. Will follow for diet advancement and assess, add supplements as appropriate. Follow up in 1 day for diet advancement.
[2023-05-07 13:11] LABS: Hematocrit 24.4 % (42.0-52.0); Hemoglobin 7.7 g/dL (14.0-18.0)
[2023-05-07 13:24] LABS: Magnesium 2.1 mg/dL (1.6-2.3)
[2023-05-07 14:31] LABS: Folic Acid 18.9 ng/mL (2.76->20)
--- NOTE | 2023-05-07 14:46 | PCSTNOTE ---
Please refer to the Bedside Swallow Evaluation in the EMR. Please note, silent aspiration cannot be ruled out at bedside.
[2023-05-07 17:55] LABS: Total Triiodothyronine (T3) 0.35 NG/ML (0.97-1.69)
[2023-05-07 18:06] LABS: Hematocrit 24.1 % (42.0-52.0); Hemoglobin 7.6 g/dL (14.0-18.0)
[2023-05-07] MEDS: ROSUVASTATIN 10 MG TABLET 40 MG PO (22:05)
[2023-05-07] MEDS: TIZANIDINE HCL 2 MG TABLET PO (22:05)
[2023-05-08] VITALS (11 sets, daily range): BP systolic 80–140; BP diastolic 45–75; PULSE 79–97; RESP 13–22; TEMP 36.2–36.6; O2SAT 92–100; BMI 30.6
[2023-05-08 00:57] LABS: Hematocrit 23.7 % (42.0-52.0); Hemoglobin 7.4 g/dL (14.0-18.0)
[2023-05-08 06:01] LABS: Eosinophils Percent Auto 0.1 % (0-4.4); Hemoglobin 7.5 g/dL (14.0-18.0); Immature Granulocyte Absolute 0.04 K/mm3 (0.00-0.031); Immature Granulocyte Percent A 0.6 % (0-0.5); Immature Platelet Fraction Pct 5.1 % (0.9-11.2); Lymphocytes Absolute Auto 0.13 K/mm3 (0.9-3.2); Lymphocytes Percent Auto 1.9 % (18.3-44.2); Mean Corpuscular HGB Conc 31.3 g/dl (32-36); Mean Corpuscular Hemoglobin 30.7 pg (26-34); Mean Corpuscular Volume 98.4 fl (80-100); Monocytes Absolute Auto 0.3 K/mm3 (0.1-0.6); Monocytes Percent Auto 4.8 % (2.6-8.5); Neutrophils Absolute Auto 6.3 K/mm3 (1.3-6.7); Neutrophils Percent Auto 92.6 % (45.5-73.1); Nucleated Red Blood Cells Perc 0.3 % (0.0-0.2); Platelet Count Result 71 k/mm3 (150-375); Red Blood Count 2.44 M/mm3 (4.6-6.20); Red Cell Distribution Width 19.6 % (11.5-14.5); White Blood Count 6.8 K/mm3 (4.5-10.0)
[2023-05-08] MEDS: LEVOTHYROXINE SODIUM 125 MCG TABLET PO (06:03)
[2023-05-08 06:07] LABS: Alanine Aminotransferase 22 U/L (6-50); Albumin Level 2.7 g/dL (3.5-5.1); Alkaline Phosphatase 142 U/L (38-126); Anion Gap 7 mmol/L (8-16); Aspartate Amino Transferase 41 U/L (17-59); Blood Urea Nitrogen 86 mg/dL (9-20); Calcium 7.7 mg/dL (8.4-10.2); Carbon Dioxide 24 mmol/L (22-30); Chloride 105 mmol/L (98-107); Estimated CRCL calculation 18 ml/min; Estimated Glomerular Filt Rate 19; Glucose 77 mg/dL (65-110); Potassium 3.4 mmol/L (3.4-5.0); Sodium 136 mmol/L (137-145)
[2023-05-08] MEDS: NYSTATIN 100,000 UNITS/ML SUSP 5 ML ORAL.SUSP PO ×3 (10:10→19:57)
[2023-05-08] MEDS: MICONAZOLE NITRATE 2% CREAM 30 GM TUBE 1 APPLIC TOPICAL ×2 (10:10→15:17)
[2023-05-08] MEDS: PROMETHAZINE HCL 25 MG SUPP.RECT RECTAL (10:53)
[2023-05-08] MEDS: SODIUM CHLORIDE 0.9% IV 500 ML 10 ML IV CONT (11:44)
--- NOTE | 2023-05-08 12:11 | WPDANESEPPF ---
Anes - Initial Pre Proc Eval Procedure: Operation Date: 05/06/23 14:00 Proposed Procedures p Esophagogastroduodenoscopy - Ruy Allred MD Operation Date: 05/08/23 12:30 Proposed Procedures p Esophagogastroduodenoscopy - Ruy Allred MD Date/Time: 05/08/23 12:11 Surgeon: Ruy Henson MD Pre Op Diagnosis: Upper GI Bleed Patient Data Age: 83 Gender: M Height: 1.68 m Weight: 86.1 kg Last Vital Signs Temp 36.6 C 05/08/23 11:47 Pulse 89 05/08/23 11:47 Resp 16 05/08/23 11:47 BP 140/66 05/08/23 11:47 Pulse Ox 100 05/08/23 11:47 O2 Del Method Room Air 05/08/23 11:47 O2 Flow Rate 1 05/06/23 15:18 FiO2 21 05/08/23 08:08 Allergies Allergy/AdvReac Type Severity Reaction Status Date / Time No Known Allergies Allergy Uncoded 04/14/19 06:31 Home Medications Medication Instructions Recorded Confirmed Type isosorbide mononitrate 30 mg 30 mg PO DAILY 04/30/23 05/06/23 History tablet,extended release 24 hr rosuvastatin 40 mg tablet (Crestor) 40 mg PO HS 04/30/23 05/06/23 History allopurinol 300 mg tablet 300 mg PO DAILY 05/06/23 05/06/23 History apixaban 2.5 mg tablet (Eliquis) 2.5 mg PO BID 05/06/23 05/06/23 History benzocaine 15 mg-menthol 3.6 mg 1 rizwana mucous membrane Q2-4H PRN 05/06/23 05/06/23 History lozenges (Cepacol Sore Throat Sore Throat (benzocaine-menthol)) bumetanide 0.5 mg tablet 0.5 mg PO EVERY OTHER DAY 05/06/23 05/06/23 History ferrous sulfate 325 mg (65 mg 325 mg PO DAILY 05/06/23 05/06/23 History iron) tablet,delayed release finasteride 5 mg tablet 5 mg PO DAILY 05/06/23 05/06/23 History hydrocodone 5 mg-acetaminophen 325 1 tablet PO Q6H PRN Pain (Scale 05/06/23 05/06/23 History mg tablet Score 4-6) ipratropium 0.5 mg-albuterol 3 mg 3 ml inhalation TID PRN Shortness 05/06/23 05/06/23 History (2.5 mg base)/3 mL nebulization Of Breath Or Wheezing soln ketoconazole 2 % topical cream 1 applic topical DAILY 05/06/23 05/06/23 History levofloxacin 500 mg tablet 500 mg PO DAILY 05/06/23 05/06/23 History levothyroxine 125 mcg tablet 125 mcg PO DAILY 05/06/23 05/06/23 History nystatin 100,000 unit/mL oral 100,000 unit PO QID 05/06/23 05/06/23 History suspension patiromer calcium sorbitex 8.4 8.4 g PO DAILY 05/06/23 05/06/23 History gram oral powder packet (Veltassa) sennosides 8.6 mg-docusate sodium 1 cap PO BID 05/06/23 05/06/23 History 50 mg capsule (Senna Plus) sertraline 25 mg tablet 25 mg PO BID 05/06/23 05/06/23 History sertraline 25 mg tablet 25 mg PO DAILY 05/06/23 05/06/23 History sodium bicarbonate 650 mg tablet 650 mg PO TID 05/06/23 05/06/23 History tizanidine 2 mg tablet 2 mg PO HS 05/06/23 05/06/23 History Laboratory Tests 05/07/23 05/07/23 05/07/23 12:56 12:56 17:43 WBC RBC Hgb 7.7 L g/dL 7.6 L g/dL (14.0-18.0) (14.0-18.0) Hct 24.4 L % 24.1 L % (42.0-52.0) (42.0-52.0) MCV MCH MCHC RDW Plt Count MPV Immature Gran % (Auto) Neut % (Auto) Lymph % (Auto) [place] % (Auto) Eos % (Auto) Baso % (Auto) Lymph # (Auto) [place] # (Auto) Eos # (Auto) Baso # (Auto) Abs Immat Gran (auto) Absolute Neuts (auto) Absolute Nucleated RBC Nucleated RBC % % Immature Plt Fraction Sodium Potassium Chloride Carbon Dioxide Anion Gap BUN Creatinine Estim Creat Clear Calc Estimated GFR Glucose Calcium Magnesium Cancelled 2.1 mg/dL (1.6-2.3) Total Bilirubin AST ALT Alkaline Phosphatase Total Protein Albumin Vitamin B12 989
--- NOTE | 2023-05-08 12:33 | PCSTNOTE ---
Angeline BOONE reported that patient has undergone EGD this morning and to wait to do MBS until tomorrow 05/09.
--- NOTE | 2023-05-08 12:51 | SUR.PREOP ---
[id number] Dr. Allred talking with patient and patient's spouse regarding the Barium swallow test. Dr. Allred thought the test should not be done today because of the patient's weakened state weak and having anesthesia today.He thought the patient would not be able to tolerate the barium swallow. He also mentioned that he would be taking biopsies of his esophagus. Spouse mentioned that the patient had not been out of bed for a week and is very week. Spouse and patient agreed that the test should be done maybe tomorrow. Radiology department called to give an update on the patient and spouses wishes. Message also relayed to the patient's nurse Rachele.
--- NOTE | 2023-05-08 14:42 | PM.IMPN ---
Progress Note: A&P Assessment and Plan (1) UGIB (upper gastrointestinal bleed): Code(s): K92.2 - Gastrointestinal hemorrhage, unspecified Status: Acute Assessment and Plan: Patient presents with hematemesis and anemia. Protonix started. Hgb low in the 7 range and stable. GI was consulted. Eliquis held EGD 05/06 showed several ulcerations within the esophagus with stigmata of bleeding and an adherent clot noted on 1 ulcer. Recommending follow-up EGD later this week and then again in 2 months Repeat EGD 05/08 showing a few superficial acute but 9 ulcers in the midesophagus in the esophageal cardia. Multiple cold forceps biopsies were taken from the distal esophagus and from the middle 3rd esophagus. No active bleeding at the time. Grossly, the ulcers appear benign. Monitor hemoglobin closely. Transfuse as needed Appreciate GI consult (2) Cough: Code(s): R05.9 - Cough, unspecified Status: Acute Assessment and Plan: Patient states he has been having bloody sputum prior to admission. Possibly having hemoptysis vs reflux of GI bleed. He has been having productive cough since he had PNA diagnosed recently. Patient did not do well with bedside speech evaluation. Currently NPO awaiting Speech therapy MBS evaluation. Check CT chest to exclude mass. Doubt PE since he has been on Eliquis on admission and symptoms began prior to admission. Consider PNA. Check sputum and AFB (3) CKD (chronic kidney disease): Code(s): N18.9 - Chronic kidney disease, unspecified Status: Acute Assessment and Plan: Patient with CKD but baseline unclear. Cr 2-2.7 in 2019 but no values since. Cr 3.7 on admission. Probably has some underlying KAYLA likely 2/2 acute blood loss anemia/GIB. Cr down to 3.1 Continue to monitor closely Consider nephrology consult if does not improve as expected (4) CHF (congestive heart failure): Code(s): I50.9 - Heart failure, unspecified Status: Acute Assessment and Plan: CXR showing minimal right pleural effusions/atelectatic changes. Clinically euvolemic. Continue Imdur and Crestor. Bumex on hold. Monitor closely (5) Anemia: Code(s): D64.9 - Anemia, unspecified Status: Acute Assessment and Plan: Patient with acute blood loss anemia. Suspect he has an underlying anemia by prior values in 2019 probably related to his CKD. Iron studies noted. B12, folate levels normal. Monitor HH and transfuse as needed Continue iron (6) Esophageal ulcer: Code(s): K22.10 - Ulcer of esophagus without bleeding Status: Acute Assessment and Plan: As above (7) Atrial fibrillation: Code(s): I48.91 - Unspecified atrial fibrillation Status: Acute Assessment and Plan: Patient has known AFib on anticoagulation. EKG showing paced rhythm. Tele also showed mostly paced rhythm. Eliquis stopped. Follow (8) Thrombocytopenia due to blood loss: Code(s): D69.59 - Other secondary thrombocytopenia Status: Acute Assessment and Plan: Plt count usually normal. Plt count dropped to 71K today. Could be related to acute blood loss from consumption. Will follow. (9) MDD (major depressive disorder), single episode, moderate: Code(s): F32.1 - Major depressive disorder, single episode, moderate Status: Acute Assessment and Plan: Mood stable. Continue Zoloft. (10) Wound of skin: Code(s): T14.8XXA - Other injury of unspecified body region, initial encounter Status: Acute Assessment and Plan: He has continued bleeding to the left forearm skin tear. Wound care consulted and dressing changes ordered. Also with a nonhealing calf biopsy lesions. THis is controlled. He has bilateral BLAYNE wraps in place. Check PT/PTT Follow Plan DVT prophylaxis with SCDs GI prophylaxis with PPI Code status unknown Subjective Date/time seen: 05/08/23 1
[2023-05-08] MEDS: FERROUS SULFATE 325 MG TABLET DR PO (15:15)
[2023-05-08] MEDS: SERTRALINE HCL 25 MG TABLET PO (15:15)
[2023-05-08] MEDS: SODIUM BICARBONATE TAB 650 MG TABLET PO ×2 (15:15→15:17)
[2023-05-08] MEDS: SENNA/DOCUSATE SODIUM TABLET 1 TAB PO (15:15)
[2023-05-08] MEDS: FINASTERIDE 5 MG TABLET PO (15:15)
[2023-05-08] MEDS: ISOSORBIDE MONONITRATE 30 MG TAB.ER.24H PO (15:15)
[2023-05-08] MEDS: PANTOPRAZOLE SODIUM IV 40 MG VIAL IV PUSH ×2 (15:16→19:57)
--- NOTE | 2023-05-08 16:00 | PC.NURSE ---
called twister tender Ginny, spoke to her about skin tear on left upper arm that happened at [facility] several days ago, she stated to put vaseline gauze wrapped with kirlex. dressing changed at 1530
[2023-05-08] MEDS: HYDROcodone/acetaminophen (*CRX) 5-325 MG TABLET 1 TAB PO (17:53)
--- NOTE | 2023-05-08 18:37 | PHAR ---
RX [phone] CONTAINING VELTASSA 8.4GM PACKETS BROUGHT FROM HOME DISSOLVE CONTENTS OF 1 PACKET INTO 1/3 CUP OF WATER AND DRINK FULL AMOUNT DAILY. BOX CONTAINS #[id number] PACKETS
[2023-05-08] MEDS: ROSUVASTATIN 10 MG TABLET 40 MG PO (19:57)
[2023-05-08] MEDS: TIZANIDINE HCL 2 MG TABLET PO (20:05)
[2023-05-09 05:10] VITALS: PULSE 88
[2023-05-09] MEDS: SODIUM CHLOR 3% 15 ML NEB (RESPIRATORY THERAPY) 6 ML INHALATION (05:16)
[2023-05-09 06:00] VITALS: BP 134/78; PULSE 82; RESP 14; TEMP 36.3; O2SAT 100
[2023-05-09] MEDS: LEVOTHYROXINE SODIUM 125 MCG TABLET PO (06:38)
[2023-05-09 07:27] LABS: Hematocrit 24.1 % (42.0-52.0); Hemoglobin 7.4 g/dL (14.0-18.0); Immature Platelet Fraction Pct 3.9 % (0.9-11.2); Mean Corpuscular HGB Conc 30.7 g/dl (32-36); Mean Corpuscular Hemoglobin 30.3 pg (26-34); Mean Corpuscular Volume 98.8 fl (80-100); Mean Platelet Volume 11.4 fl (7.4-10.4); Platelet Count Result 66 k/mm3 (150-375); Red Blood Count 2.44 M/mm3 (4.6-6.20); Red Cell Distribution Width 19.3 % (11.5-14.5); White Blood Count 8.1 K/mm3 (4.5-10.0)
[2023-05-09 07:34] LABS: Alanine Aminotransferase 21 U/L (6-50); Albumin Level 2.6 g/dL (3.5-5.1); Alkaline Phosphatase 165 U/L (38-126); Anion Gap 10 mmol/L (8-16); Aspartate Amino Transferase 44 U/L (17-59); Bilirubin,Total 1.2 mg/dL (0.2-1.3); Blood Urea Nitrogen 83 mg/dL (9-20); Calcium 7.7 mg/dL (8.4-10.2); Carbon Dioxide 23 mmol/L (22-30); Chloride 107 mmol/L (98-107); Estimated CRCL calculation 16 ml/min; Estimated Glomerular Filt Rate 17; Glucose 56 mg/dL (65-110); Phosphorus 3.7 mg/dL (2.5-4.5); Potassium 3.7 mmol/L (3.4-5.0); Sodium 140 mmol/L (137-145)
[2023-05-09 07:38] LABS: INR 1.5; Prothrombin Time 18.5 Seconds (11.1-14.7)
[2023-05-09 07:39] LABS: Partial Thromboplastin Time 46.9 SECONDS (22.3-36.8)
[2023-05-09] MEDS: DEXTROSE 50% 25 GM/50 ML SYRINGE IV PUSH (08:14)
[2023-05-09] MEDS: FERROUS SULFATE 325 MG TABLET DR PO (08:18)
[2023-05-09] MEDS: SODIUM BICARBONATE TAB 650 MG TABLET PO ×2 (08:18→18:48)
[2023-05-09] MEDS: allopurinoL 300 MG TABLET PO (08:18)
[2023-05-09] MEDS: ISOSORBIDE MONONITRATE 30 MG TAB.ER.24H PO (08:18)
[2023-05-09] MEDS: SENNA/DOCUSATE SODIUM TABLET 1 TAB PO ×2 (08:18→18:49)
[2023-05-09] MEDS: MICONAZOLE NITRATE 2% CREAM 30 GM TUBE 1 APPLIC TOPICAL ×2 (08:19→18:49)
[2023-05-09] MEDS: FINASTERIDE 5 MG TABLET PO (08:19)
[2023-05-09] MEDS: NYSTATIN 100,000 UNITS/ML SUSP 5 ML ORAL.SUSP PO (08:24)
[2023-05-09] MEDS: PANTOPRAZOLE SODIUM IV 40 MG VIAL IV PUSH ×2 (08:24→20:55)
[2023-05-09 08:42] LABS: Glucose Point of Care 120 mg/dl (65-105)
[2023-05-09 08:42] LABS: Glucose Point of Care 67 mg/dl (65-105)
--- NOTE | 2023-05-09 09:09 | WPDANESPN ---
Anes - Prog Note Post-Op Date/Time: 05/09/23 09:09 Cardiovascular status: normal Respiratory status: normal Airway patency: baseline Mental status: baseline Post-Op hydration status: normal Vital Signs: Last Vital Signs Temp 36.3 C L 05/09/23 06:00 Pulse 82 05/09/23 06:00 Resp 14 05/09/23 06:00 BP 134/78 05/09/23 06:00 Pulse Ox 100 05/09/23 06:00 O2 Del Method CPAP 05/08/23 21:25 O2 Flow Rate 4 05/08/23 12:57 FiO2 21 05/08/23 20:10 Pain Score (VAS): no complaints I/O: Intake & Output 05/08/23 05/09/23 05/09/23 23:59 07:59 15:59 Output Total 400 Balance -400 Laboratory Tests 05/09/23 07:01 05/09/23 07:01 05/09/23 05/09/23 05/09/23 07:01 08:12 08:32 WBC 8.1 RBC 2.44 L Hgb 7.4 L Hct 24.1 L MCV 98.8 MCH 30.3 MCHC 30.7 L RDW 19.3 H Plt Count 66 L MPV 11.4 H Immature Gran % (Auto) Not Reportable Neut % (Auto) Not Reportable Lymph % (Auto) Not Reportable [place] % (Auto) Not Reportable Eos % (Auto) Not Reportable Baso % (Auto) Not Reportable Lymph # (Auto) Not Reportable [place] # (Auto) Not Reportable Eos # (Auto) Not Reportable Baso # (Auto) Not Reportable Abs Immat Gran (auto) Not Reportable Absolute Neuts (auto) Not Reportable Absolute Nucleated RBC Not Reportable Nucleated RBC % Not Reportable Platelet Estimate Pending % Immature Plt Fraction 3.9 Schistocytes Pending PT 18.5 H INR 1.5 APTT 46.9 H Sodium 140 Potassium 3.7 Chloride 107 Carbon Dioxide 23 Anion Gap 10 BUN 83 H Creatinine 3.40 H Estim Creat Clear Calc 16 Estimated GFR 17 L Glucose 56 L* POC Capillary Glucose 67 120 H Calcium 7.7 L Phosphorus 3.7 Magnesium 2.0 Total Bilirubin 1.2 AST 44 ALT 21 Alkaline Phosphatase 165 H Total Protein 5.0 L Albumin 2.6 L Post-procedural complaints: none Patient Feedback: Patient satisfied with anesthetic care.
[2023-05-09 09:53] LABS: Band Neutrophils Percent 4 % (0-6); Hypochromasia 1+ (NORMAL); Lymphocytes Absolute Manual 0.16 K/mm3 (1.1-4.5); Lymphocytes Percent Manual 2 % (18-44); Monocytes Absolute Manual 0.32 K/mm3 (0.1-0.90); Monocytes Percent Manual 4 % (3-9); Neutrophils Absolute Manual 7.61 K/mm3 (1.3-6.7); Neutrophils Percent Manual 90 % (46-73); Total Cells Counted 100
[2023-05-09 09:54] LABS: Ovalocytes 1+ (NORMAL); Platelet Estimate Decreased (Adequate)
[2023-05-09 09:55] LABS: Anisocytosis 1+ (NORMAL)
[2023-05-09 09:56] LABS: Schistocytes None Seen (NORMAL)
--- NOTE | 2023-05-09 11:45 | PCSTNOTE ---
Please refer to the Modified Barium Swallow Evaluation in the EMR.
--- NOTE | 2023-05-09 12:21 | PC.NURSE ---
1221 called speech regarding barrium swallow results, and need for order. will get back with me.
--- NOTE | 2023-05-09 12:52 | PCNFU ---
Nutrition Follow-Up Complete: Last recorded weight is 86.1 kg. No new weights since admission. Bowel Motility: BM 05/05/23 Labs Reviewed: Hgb 7.4, Hct 24.1, BUN 83, Cr 3.4, glucose 56 Meds Noted: Protonix, [place], iron, Senokot S Skin: sacral pressure ulcer, deep tissue; left lower leg ulcer Additional Notes: Patient had MBS today which showed esophageal/pharyngeal backflow with laryngeal penetration and silent aspiration. Edema: 1+ bilateral lower leg- down from 3+. Inadequate energy intake related to NPO status as evidenced by current diet orders. (Continue) Pt current nutrition is NPO. MBS this morning. EXTENSION DIVISION DIRECTOR to determine specific feeding recommendations. Nutrition recommendation: 1. Advance to a general diet. Diet consistency per EXTENSION DIVISION DIRECTOR. Monitor for a cardiac diet. If diet unable to be advanced, please consider alternate route of nutrition as appropriate with patient's goals of care. RD available for nutrition support recommendations. 2. Ensure Compact TID with diet advancement. 3. Please check weight. Goal: PO intake greater than 50% of meals (not met, continue) Monitor for EXTENSION DIVISION DIRECTOR recommendations, diet order, intake, weight, labs. Follow up in 3 days.
[2023-05-09 14:00] VITALS: BP 150/63; PULSE 89; RESP 14; TEMP 36.8; O2SAT 94
--- NOTE | 2023-05-09 14:24 | PC.NURSE ---
[id number] Jones to inform of results of swallow study. Kaci with speech stated patient needs to be strict NPO d/t silent aspiration. Dr will be up to speak to family regarding plan of care. at bedside
--- NOTE | 2023-05-09 15:45 | PM.IMPN ---
Progress Note: A&P Assessment and Plan (1) UGIB (upper gastrointestinal bleed): Code(s): K92.2 - Gastrointestinal hemorrhage, unspecified Status: Acute Assessment and Plan: Patient presents with hematemesis and anemia. Protonix started. Hgb low in the 7 range and stable. GI was consulted. Andrey held EGD 05/06 showed several ulcerations within the esophagus with stigmata of bleeding and an adherent clot noted on 1 ulcer. Repeat EGD 05/08 showing a few superficial acute but 9 ulcers in the midesophagus in the esophageal cardia. Multiple cold forceps biopsies were taken from the distal esophagus and from the middle 3rd esophagus. No active bleeding at the time. Grossly, the ulcers appear benign. Monitor hemoglobin closely. Transfuse as needed Recommending follow-up EGD in 2 months Appreciate GI consult (2) Dysphagia: Code(s): R13.10 - Dysphagia, unspecified Status: Acute Assessment and Plan: Patient states he has been having bloody sputum prior to admission. Possibly having hemoptysis vs reflux of GI bleed vs related to epistaxis. He has been having productive cough since he was hospitalized for PNA diagnosed recently. CT Neck and Chest 05/08 showing small pleural effusion R>L and partially visualized left kidney masses possibly cyst. Mild atelectasis but no evidence of PNA. Family and patient unaware of any renal lesions but follows with research program assistant elsewhere Patient did not do well with bedside speech evaluation so MBS ordered. MBS 05/09 showing patient with mayur aspiration and severe dysphagia complicated but esophageal backflow. Discussed options and patient is agreeable for GTube. As such, will place NGT for medications and TF. Plan for repeat MBS on Friday with further plan depending on how it goes. (3) Cough: Code(s): R05.9 - Cough, unspecified Status: Acute Assessment and Plan: As above (4) CKD (chronic kidney disease): Code(s): N18.9 - Chronic kidney disease, unspecified Status: Acute Assessment and Plan: Patient with CKD but baseline unclear. Cr 2-2.7 in 2019 but no values since. Cr 3.7 on admission. Probably has some underlying KAYLA likely 2/2 acute blood loss anemia/GIB. Cr back up to 3.4 Continue to monitor closely Consider nephrology consult if does not improve as expected old records ordered to determine baseline (5) CHF (congestive heart failure): Code(s): I50.9 - Heart failure, unspecified Status: Acute Assessment and Plan: CXR showing minimal right pleural effusions/atelectatic changes. CT chest showing small pleural effusion R>L. Clinically euvolemic. Continue Imdur and Crestor via NGT Monitor closely (6) Anemia: Code(s): D64.9 - Anemia, unspecified Status: Acute Assessment and Plan: Patient with acute blood loss anemia. Suspect he has an underlying anemia by prior values in 2019 probably related to his CKD. Iron studies noted. B12, folate levels normal. Monitor HH and transfuse as needed Continue iron (7) Esophageal ulcer: Code(s): K22.10 - Ulcer of esophagus without bleeding Status: Acute Assessment and Plan: As above (8) Atrial fibrillation: Code(s): I48.91 - Unspecified atrial fibrillation Status: Acute Assessment and Plan: Patient has known AFib on anticoagulation. EKG showing paced rhythm. Tele also showed mostly paced rhythm. Eliquis stopped. Follow (9) Thrombocytopenia due to blood loss: Code(s): D69.59 - Other secondary thrombocytopenia Status: Acute Assessment and Plan: Plt count usually normal. Plt count dropped to 66K today. Could be related to acute blood loss from consumption. PT 18, INR 1.5 with PTT 47 Low grade DIC? Will follow. (10) MDD (major depressive disorder), single episode, moderate: Code(s): F32.1 - Major depressive disorder, single episode, moderate
[2023-05-09 17:49] LABS: Glucose Point of Care 82 mg/dl (65-105)
[2023-05-09] MEDS: SERTRALINE HCL 25 MG TABLET PO (18:48)
[2023-05-09] MEDS: DEXTROSE 5% 1,000 ML 1,000 ML 100 ML IVPB (19:35)
[2023-05-09 20:40] VITALS: BP 131/70; PULSE 90; RESP 20; TEMP 36.1; O2SAT 96
[2023-05-09] MEDS: ROSUVASTATIN 20 MG TABLET 40 MG FEED TUBE (20:55)
[2023-05-10] VITALS (8 sets, daily range): BP systolic 95–139; BP diastolic 52–69; PULSE 48–93; RESP 16–20; TEMP 36.4–36.8; O2SAT 92–100
[2023-05-10 00:09] LABS: Glucose Point of Care 94 mg/dl (65-105)
[2023-05-10] MEDS: SODIUM CHLOR 3% 15 ML NEB (RESPIRATORY THERAPY) 6 ML INHALATION (05:01)
[2023-05-10] MEDS: LEVOTHYROXINE SODIUM 125 MCG TABLET FEED TUBE (05:42)
[2023-05-10 06:18] LABS: Glucose Point of Care 112 mg/dl (65-105)
[2023-05-10 06:35] LABS: Basophils Percent Auto 0.1 % (0.2-1.2); Hematocrit 21.6 % (42.0-52.0); Immature Granulocyte Absolute 0.02 K/mm3 (0.00-0.031); Immature Granulocyte Percent A 0.3 % (0-0.5); Lymphocytes Absolute Auto 0.26 K/mm3 (0.9-3.2); Lymphocytes Percent Auto 3.6 % (18.3-44.2); Mean Corpuscular Hemoglobin 30.5 pg (26-34); Mean Corpuscular Volume 98.2 fl (80-100); Mean Platelet Volume 11.2 fl (7.4-10.4); Monocytes Absolute Auto 0.6 K/mm3 (0.1-0.6); Monocytes Percent Auto 8.1 % (2.6-8.5); Neutrophils Absolute Auto 6.4 K/mm3 (1.3-6.7); Neutrophils Percent Auto 87.9 % (45.5-73.1); Nucleated Red Blood Cells Perc 0.3 % (0.0-0.2); Platelet Count Result 58 k/mm3 (150-375); Red Cell Distribution Width 19.1 % (11.5-14.5); White Blood Count 7.3 K/mm3 (4.5-10.0)
[2023-05-10 06:45] LABS: Alanine Aminotransferase 20 U/L (6-50); Albumin Level 2.4 g/dL (3.5-5.1); Alkaline Phosphatase 202 U/L (38-126); Anion Gap 7 mmol/L (8-16); Aspartate Amino Transferase 48 U/L (17-59); Bilirubin,Total 1.1 mg/dL (0.2-1.3); Blood Urea Nitrogen 79 mg/dL (9-20); Calcium 7.3 mg/dL (8.4-10.2); Carbon Dioxide 24 mmol/L (22-30); Chloride 105 mmol/L (98-107); Estimated CRCL calculation 14 ml/min; Estimated Glomerular Filt Rate 15; Glucose 106 mg/dL (65-110); Potassium 3.5 mmol/L (3.4-5.0); Sodium 136 mmol/L (137-145)
[2023-05-10 06:50] LABS: Hemoglobin 6.7 g/dL (14.0-18.0); Phosphorus 3.3 mg/dL (2.5-4.5)
--- NOTE | 2023-05-10 09:26 | WPDGIPROGNO ---
Progress Note: A&P Assessment and Plan (1) Dysphagia: Code(s): R13.10 - Dysphagia, unspecified Status: Acute Assessment and Plan: apparently this was a problem prior to admission as well. He failed a modified barium swallow. Consequently now has NG tube in place, for nutrition and medications. (2) Atrial fibrillation: Code(s): I48.91 - Unspecified atrial fibrillation Status: Acute Assessment and Plan: Has this chronically and he therefore has been on Eliquis. (3) Chronic anticoagulation: Code(s): Z79.01 - assisted (current) use of anticoagulants Status: Acute Assessment and Plan: Given his low platelet count I doubt that he will be able to be continued on Eliquis in the future. He certainly is at high risk for bleeding. (4) Esophageal ulcer: Code(s): K22.10 - Ulcer of esophagus without bleeding Status: Acute Assessment and Plan: On initial endoscopy Dr. Allred felt that these had been a source of bleeding. A repeat EGD with biopsies was done. Biopsies are pending. (5) UGIB (upper gastrointestinal bleed): Code(s): K92.2 - Gastrointestinal hemorrhage, unspecified Status: Acute Assessment and Plan: Resolved at present Plan Unless platelets continue to drop, will schedule G-tube placement for Friday. I Discussed this with the patient he is agreeable, as he would rather not have the NG tube. Subjective Date/time seen: 05/10/23 09:26 initially we saw this patient because of hematemesis and he was found to have multiple esophageal ulcers. He also failed a modified barium swallow test. He told me that he has had trouble with food going down the wrong throat for a while prior to admission. Exam Const: General: alert Orientation/consciousness: patient oriented x3 HENMT: Face/Nose/Sinus: Other nasal findings present ( NG tube in place) Resp: Auscultation: clear to auscultation bilaterally Cardio: Rhythm: regular rhythm GI: Inspection: normal to inspection GI Palp: Yes Soft to palpation, No Tenderness to palpation present (GI) and Yes No hepatosplenomegaly present Auscultation: normal bowel sounds Skin: General skin exam: purpura ( extensive especially upper extremities) Neuro: General: patient oriented x3 Objective Data Vital Signs Vital Signs: Vital Signs - 24 hr 05/09/23 11:35 05/09/23 14:00 05/09/23 20:00 Temperature 36.8 C Pulse Rate 89 Respiratory Rate 14 Blood Pressure 150/63 H Pulse Oximetry 94 Oxygen Delivery Room Air Room Air 05/09/23 20:40 05/10/23 05:06 05/10/23 06:00 Temperature 36.1 C L 36.6 C Pulse Rate 90 87 48 L Respiratory Rate 20 16 Blood Pressure 131/70 112/53 L Pulse Oximetry 96 97 Oxygen Delivery Intake/Output Intake/Output: Intake & Output 05/07/23 05/08/23 05/09/23 05/10/23 23:59 23:59 23:59 23:59 Intake Total 800 0 Output Total 1425 1200 Balance -625 -1200 Meds/Results Medications: Active Medications Generic Name Dose Route Start Last Admin Trade Name Freq PRN Reason Stop Dose Admin Hydrocodone Bitart/Acetaminophen 1 tab 05/09/23 19:16 Hydrocodone/Acetaminophen (*Crx) 5-325 Mg Tablet FEED TUBE Q6H PRN Pain (Scale Score 4-6) Albuterol 2.5 mg 05/06/23 17:03 Albuterol Sulfate Neb 2.5 Mg/3 Ml Inh INHALATION Q8HRT PRN Shortness Of Breath Or Wheezing Allopurinol 300 mg 05/10/23 09:00 Allopurinol 300 Mg Tablet FEED TUBE DAILY GRAY Dextrose 12.5 gm 05/09/23 07:56 05/09/23 08:14 Dextrose 50% 25 Gm/50 Ml Syringe IV PUSH 12.5 gm PRN PRN Administration Hypoglycemia Protocol Ferrous Sulfate 325 mg 05/07/23 09:00 05/09/23 08:18 Ferrous Sulfate [address] PO 325 mg DAILY GRAY Administration Finasteride 5 mg 05/10/23 09:00 Finasteride 5 Mg Tablet FEED TUBE DAILY GRAY Glucagon 1 mg 05/09/23 07:56 Glucagon For Inj 1 Mg Vial
--- NOTE | 2023-05-10 09:59 | PCPTNOTE ---
Attempted PT treatment at 9:58 but pt. declined saying he could not even hold his head up right now.
[2023-05-10] MEDS: allopurinoL 300 MG TABLET FEED TUBE (10:55)
[2023-05-10] MEDS: SODIUM BICARBONATE TAB 650 MG TABLET FEED TUBE (10:55)
[2023-05-10] MEDS: SERTRALINE HCL 25 MG TABLET FEED TUBE (10:55)
[2023-05-10] MEDS: FINASTERIDE 5 MG TABLET FEED TUBE (10:55)
[2023-05-10] MEDS: MICONAZOLE NITRATE 2% CREAM 30 GM TUBE 1 APPLIC TOPICAL ×2 (10:56→18:13)
[2023-05-10] MEDS: ISOSORBIDE DINITRATE 10 MG TABLET FEED TUBE (10:56)
[2023-05-10] MEDS: PANTOPRAZOLE SODIUM IV 40 MG VIAL IV PUSH ×2 (11:09→21:15)
[2023-05-10] MEDS: SODIUM CHLORIDE 0.9% IV 250 ML 30 ML IV CONT (12:10)
[2023-05-10] MEDS: HYDROcodone/acetaminophen (*CRX) 5-325 MG TABLET 1 TAB FEED TUBE (12:26)
[2023-05-10 13:20] LABS: Glucose Point of Care 92 mg/dl (65-105)
--- NOTE | 2023-05-10 16:06 | PM.IMPN ---
Progress Note: A&P Assessment and Plan (1) UGIB (upper gastrointestinal bleed): Code(s): K92.2 - Gastrointestinal hemorrhage, unspecified Status: Acute Assessment and Plan: Patient presents with hematemesis and anemia. Protonix started. Hgb low in the 7 range and stable. GI was consulted. Andrey held EGD 05/06 showed several ulcerations within the esophagus with stigmata of bleeding and an adherent clot noted on 1 ulcer. Repeat EGD 05/08 showing a few superficial acute benign ulcers in the midesophagus in the esophageal cardia. Multiple cold forceps biopsies were taken from the distal esophagus and from the middle 3rd esophagus. No active bleeding at that time. Grossly, the ulcers appear benign. Hgb dropped to 6.7 today and 1U PRBC ordered. Transfuse as needed Recommending follow-up EGD in 2 months but patient moving toward hospice Appreciate GI consult (2) Dysphagia: Code(s): R13.10 - Dysphagia, unspecified Status: Acute Assessment and Plan: Patient states he has been having bloody sputum prior to admission. Possibly having hemoptysis vs reflux of GI bleed vs related to epistaxis. He has been having productive cough since he was hospitalized for PNA diagnosed recently. CT Neck and Chest 05/08 showing small pleural effusion R>L and partially visualized left kidney masses possibly cyst. Mild atelectasis but no evidence of PNA. Family and patient unaware of any renal lesions but follows with note teller elsewhere Patient did not do well with bedside speech evaluation so MBS ordered. MBS 05/09 showing patient with mayur aspiration and severe dysphagia complicated but esophageal backflow. Discussed options and patient initially was agreeable for GTube but now wanting to proceed with hospice. Start soft and bite sized diet. Pateint aware of the risks of eating (3) Cough: Code(s): R05.9 - Cough, unspecified Status: Acute Assessment and Plan: As above (4) CKD (chronic kidney disease): Code(s): N18.9 - Chronic kidney disease, unspecified Status: Acute Assessment and Plan: Patient with CKD but baseline unclear. Cr 2-2.7 in 2019 but no values since. Cr 3.7 on admission. Probably has some underlying KAYLA likely 2/2 acute blood loss anemia/GIB. Cr back up to 3.9 As above. (5) CHF (congestive heart failure): Code(s): I50.9 - Heart failure, unspecified Status: Acute Assessment and Plan: CXR showing minimal right pleural effusions/atelectatic changes. CT chest showing small pleural effusion R>L. Clinically euvolemic. Imdur and Crestor to be stopped Monitor closely (6) Anemia: Code(s): D64.9 - Anemia, unspecified Status: Acute Assessment and Plan: Patient with acute blood loss anemia. Suspect he has an underlying anemia by prior values in 2019 probably related to his CKD. Iron studies noted. B12, folate levels normal. Transfuse today but no plans for further monitoring (7) Esophageal ulcer: Code(s): K22.10 - Ulcer of esophagus without bleeding Status: Acute Assessment and Plan: As above (8) Atrial fibrillation: Code(s): I48.91 - Unspecified atrial fibrillation Status: Acute Assessment and Plan: Patient has known AFib on anticoagulation. EKG showing paced rhythm. Tele also showed mostly paced rhythm. Eliquis stopped. Follow (9) Thrombocytopenia due to blood loss: Code(s): D69.59 - Other secondary thrombocytopenia Status: Acute Assessment and Plan: Plt count usually normal. Plt count dropped to 66K today. Could be related to acute blood loss from consumption. PT 18, INR 1.5 with PTT 47 Will follow. (10) MDD (major depressive disorder), single episode, moderate: Code(s): F32.1 - Major depressive disorder, single episode, moderate Status: Acute Assessment and Plan: Mood stable. Continue Zoloft. (11) W
[2023-05-10] MEDS: SERTRALINE HCL 25 MG TABLET PO (18:13)
[2023-05-10] MEDS: SODIUM BICARBONATE TAB 650 MG TABLET PO (18:13)
--- NOTE | 2023-05-10 23:28 | PC.NURSE ---
Spoke with patients about resuscitation status. Pt was a full code and will be transitioning to hospice care tomorrow. Called the , Altagracia, and asked her if she would be okay with code status being changed to DNR. was in agreement and Blanche RN was the second nurse to verify over the phone. Altagracia informed me that the pt has an active defibrillator. Pts states that she has already unplugged it at home but said that hospice had mentioned something about magnet deactivation. The said that she does not want the defibrillator to go off and would like for it to be shut off. Spoke with Dr Chaudhry about change in code status and the defibrillator. Dr Chaudhry agreed to the magnet deactivation tonight. quality assurance supervisor trim to be called by this RN to retrieve the magnet.
[2023-05-11] MEDS: PROMETHAZINE HCL 25 MG SUPP.RECT RECTAL (03:33)
[2023-05-11 04:55] VITALS: BP 112/76; PULSE 89; RESP 20; TEMP 36; O2SAT 97
[2023-05-11] MEDS: LEVOTHYROXINE SODIUM 125 MCG TABLET PO (05:14)
[2023-05-11] MEDS: HYDROcodone/acetaminophen (*CRX) 5-325 MG TABLET 1 TAB PO (05:23)
[2023-05-11 08:00] VITALS: PULSE 89; RESP 20; O2SAT 97
[2023-05-11] MEDS: SODIUM BICARBONATE TAB 650 MG TABLET PO (08:39)
[2023-05-11] MEDS: ISOSORBIDE MONONITRATE 30 MG TAB.ER.24H PO (08:39)
[2023-05-11] MEDS: SERTRALINE HCL 25 MG TABLET PO (08:39)
[2023-05-11] MEDS: PANTOPRAZOLE SODIUM IV 40 MG VIAL IV PUSH (08:39)
[2023-05-11] MEDS: FINASTERIDE 5 MG TABLET PO (08:39)
[2023-05-11] MEDS: allopurinoL 300 MG TABLET PO (08:39)
[2023-05-11] MEDS: MICONAZOLE NITRATE 2% CREAM 30 GM TUBE 1 APPLIC TOPICAL (08:39)
--- NOTE | 2023-05-11 09:43 | PM.DS ---
DS: Admitting Diagnosis Discharge Date 05/11/23 Admitting Diagnosis Low hemoglobin DS: Discharge Diagnosis Discharge Diagnosis (1) UGIB (upper gastrointestinal bleed): Code(s): K92.2 - Gastrointestinal hemorrhage, unspecified Status: Acute (2) Dysphagia: Code(s): R13.10 - Dysphagia, unspecified Status: Acute Assessment and Plan: Patient states he has been having bloody sputum prior to admission. Possibly having hemoptysis vs reflux of GI bleed vs related to epistaxis. He has been having productive cough since he was hospitalized for PNA diagnosed recently. CT Neck and Chest 05/08 showing small pleural effusion R>L and partially visualized left kidney masses possibly cyst. Mild atelectasis but no evidence of PNA. Family and patient unaware of any renal lesions but follows with post doctoral researcher elsewhere Patient did not do well with bedside speech evaluation so MBS ordered. MBS 05/09 showing patient with mayur aspiration and severe dysphagia complicated but esophageal backflow. Discussed options and patient initially was agreeable for GTube but now wanting to proceed with hospice. Start soft and bite sized diet. Pateint aware of the risks of eating (3) Cough: Code(s): R05.9 - Cough, unspecified Status: Acute (4) CKD (chronic kidney disease): Code(s): N18.9 - Chronic kidney disease, unspecified Status: Acute Assessment and Plan: Patient with CKD but baseline unclear. Cr 2-2.7 in 2019 but no values since. Cr 3.7 on admission. Probably has some underlying KAYLA likely 2/2 acute blood loss anemia/GIB. Cr back up to 3.9 As above. (5) CHF (congestive heart failure): Code(s): I50.9 - Heart failure, unspecified Status: Acute (6) Anemia: Code(s): D64.9 - Anemia, unspecified Status: Acute (7) Esophageal ulcer: Code(s): K22.10 - Ulcer of esophagus without bleeding Status: Acute (8) Atrial fibrillation: Code(s): I48.91 - Unspecified atrial fibrillation Status: Acute (9) Thrombocytopenia due to blood loss: Code(s): D69.59 - Other secondary thrombocytopenia Status: Acute (10) MDD (major depressive disorder), single episode, moderate: Code(s): F32.1 - Major depressive disorder, single episode, moderate Status: Acute (11) Wound of skin: Code(s): T14.8XXA - Other injury of unspecified body region, initial encounter Status: Acute (12) Coagulopathy: Code(s): D68.9 - Coagulation defect, unspecified Status: Acute DS: Summary Hospital Course Reason for hospitalization: 83-year-old male with history of kidney disease, AFib on anticoagulation, and heart failure is presenting from a nursing facility with a hemoglobin of 7.2 as well as hematemesis x2 days.?Please see H&P for details. Hospital Course: Patient presented with hematemesis and anemia. Protonix started. Hgb low at 7.1 and he received one unit. GI was consulted. Eliquis held. EGD 05/06 showed several ulcerations within the esophagus with stigmata of bleeding and an adherent clot noted on 1 ulcer. Repeat EGD 05/08 showing a few superficial acute benign ulcers in the midesophagus in the esophageal cardia.? Multiple cold forceps biopsies were taken from the distal esophagus and from the middle 3rd esophagus.? No active bleeding at that time.? Grossly, the ulcers appeared benign. Hgb dropped again to 6.7 and he received one more unit PRBC. Patient states he has been having cough with bloody sputum prior to admission. This productive cough has been since he was hospitalized for PNA diagnosed recently elsewhere. CT Neck and Chest 05/08 showing small pleural effusion R>L and partially visualized left kidney masses possibly cyst. Mild atelectasis but no evidence of PNA. Family and patient were unaware of any renal lesions but follows with post doctoral researcher elsewhere. Patient has CKD but baseline unclear. Cr 2-2.7 in 2019 but no values
--- NOTE | 2023-06-15 13:23 | PC.NURSE ---
Lab called with confirmation of patient's primary care provider r/t a critical lab they need to relay.
== END 2023-05-11 11:20 | disposition hospice, home (50) | DRG 381 ==
LOC: ANHED 05-06 02:38 → ANH3MEDSUR 05-06 02:42
PROVIDERS: Internal Medicine Gastroenterology; Nurse Practitioner Family; Student in an Organized Health Care Education/Training Program; Admitting Provider Internal Medicine; Emergency Provider Emergency Medicine; PCP Internal Medicine; Visit Provider Internal Medicine
PROC: 0DJ08ZZ Inspection of Upper Intestinal Tract, Via Natural or Artificial Opening Endoscopic (ICD-10-PCS; CPT 43235; principal; 2023-05-06 14:00)
DX: K22.11 Ulcer of esophagus with bleeding (principal); D68.9 Coagulation defect, unspecified; F32.1 Major depressive disorder, single episode, moderate; N17.9 Acute kidney failure, unspecified; N18.4 Chronic kidney disease, stage 4 (severe); T17.900A Unspecified foreign body in respiratory tract, part unspecified causing asphyxiation, initial encounter; S51.812D Laceration without foreign body of left forearm, subsequent encounter; R13.10 Dysphagia, unspecified; N28.89 Other specified disorders of kidney and ureter; D63.1 Anemia in chronic kidney disease; D69.59 Other secondary thrombocytopenia; I50.9 Heart failure, unspecified; I48.91 Unspecified atrial fibrillation; Z79.01 Long term (current) use of anticoagulants; Z87.891 Personal history of nicotine dependence
CPT/HCPCS: 36415; 36430; 70490; 71045; 71250; 80053; 82607; 82728; 82746; 82948; 83540; 83550; 83735; 84100; 84439; 84443; 84480; 85014; 85018; 85025; 85055; 85610; 85730; 86850; 86900; 86901; 86920; 86923; 87015; 87070; 87116; 87118; 87205; 87206; 88305; 88313; 88341; 88342; 92526; 92610; 92611; 93005; 94002; 94003; 94640; 96374; 96375; 97161; 97166; 99285; A9270; C9113; J2371; J2405; J2704; J7040; J7050; J7070; J7120; P9016